=== PATIENT | female | born 1995 | race Caucasian/White ===

== ENCOUNTER → 2017-10-02 13:11 | Outpatient (CLI) | payer OTHER, MEDICAID, SELFPAY ==
--- NOTE | 2017-10-02 | DI.US.S_ITS ---
PROCEDURE: US OB >= 14 WEEKS FETUS INDICATIONS: 20 WEEK ANATOMICAL SURVEY OUTSIDE/PRIOR DATING DATA: Last menstrual period (LMP): 03/25/17. LMP-based estimated date of delivery (YOUNG): 12/21/17. First dating scan (date and location): 06/26/17 performed at [facility]. Estimated date of delivery (YOUNG) from first dating scan: 01/13/18. TECHNIQUE: Real-time scanning was performed of the fetus, with image documentation and biometric measurements. Endovaginal scanning: No COMPARISON: None. FINDINGS: General: A single living intrauterine gestation is present. Presentation: breech. Placenta: Placental position is posterior, without previa. Amniotic fluid index: 13.0 cm, normal range is 5-24 cm. heart rate: 141 beats per minute. Maternal cervical canal: 2.9 cm long. Normal lower limit is 2.5 cm. biometrics: Biparietal diameter: 24 weeks 4 days Head circumference: 24 weeks 3 days Abdominal circumference: 25 weeks Femur length: 25 weeks 3 days Estimated gestational age from initial scan: 25 weeks 2 days Composite gestational age from present scan: 25 weeks Estimated weight and percentile: 464 g; 40 percentile Measurement variability for biometric dating: +/- 7 days from 14 weeks to 15 weeks 6 days gestation, +/- 10 days from 16 weeks to 21 weeks 6 days gestation, +/- 2 weeks from 22 weeks to 27 weeks 6 days gestation, +/- 3 weeks for 28 weeks gestation or later. weight reference: 4500 g or EFW >90/95% is considered macrosomia or large for gestational age. EFW <10% is small for gestational age. EFW 5% or less is considered intra-uterine growth restriction. Anatomic survey: Neuro: Ventricles are non-dilated at less than 10 mm. Cisterna magna is normal at 3-11 mm. Cerebellum is normal in size and morphology. Nuchal skin fold: Normal at less than 6 mm between 14-21 weeks gestational age. Face: Nose and lips, facial profile are normal. Spine: No evidence for spina bifida. Heart: 4-chambered heart is present, with normal ventricular outflow tracts. Diaphragm: Diaphragm is intact. Stomach: Left-sided stomach is present. Kidneys: No hydronephrosis. Normal is less than 5 mm in 2nd trimester, less than 7 mm in 3rd trimester. Cord: 3-vessel cord has orthotopic insertion. Bladder: Normal in size. Extremities: All 4 extremities identified. IMPRESSION: 1. Single living IUP redemonstrated; the interval growth is normal. 2. Normal anatomic survey. Dictated by: Aric Gallegos [facility] Interpreted: Alejandro Garcia MD on 10/02/2017 at 15:24 Approved by: Alejandro Garcia M.D. on 10/02/2017 at 17:57
== END ==
PROVIDERS: Visit Provider Midwife
DX: Z34.92 Encounter for supervision of normal pregnancy, unspecified, second trimester (principal); Z36.89 Encounter for other specified antenatal screening; Z3A.25 25 weeks gestation of pregnancy
CPT/HCPCS: 76811

== ENCOUNTER → 2017-12-13 08:05 | Outpatient (CLI) | payer OTHER, MEDICAID, SELFPAY ==
--- NOTE | 2017-12-13 | DI.US.S_ITS ---
PROCEDURE: US OB LIMITED INDICATIONS: 35 WEEKS NOT MUCH GROWTH OUTSIDE/PRIOR DATING DATA: Last menstrual period (LMP): 03/25/17. LMP-based estimated date of delivery (YOUNG): 12/21/17. First dating scan (date and location): 06/26/17 performed at [facility]. Estimated date of delivery (YOUNG) from first dating scan: 01/13/18. TECHNIQUE: Real-time scanning was performed of the fetus, with image documentation and biometric measurements. Endovaginal scanning: No COMPARISON: None. FINDINGS: General: A single living intrauterine gestation is present. Presentation: Vertex. Placenta: Placental position is posterior, without previa. Amniotic fluid index: 0.7 cm, normal range is 5-24 cm. heart rate: 131 beats per minute. Maternal cervical canal: Not well-seen. cm long. biometrics: Biparietal diameter: 35 weeks 1 day Head circumference: 35 weeks 4 days Abdominal circumference: 35 weeks 1 day Femur length: 35 weeks 2 days Estimated gestational age from initial scan: 35 weeks 4 days Composite gestational age from present scan: 35 weeks 2 days Estimated weight and percentile: 2615 g; 38 percentile Measurement variability for biometric dating: +/- 7 days from 14 weeks to 15 weeks 6 days gestation, +/- 10 days from 16 weeks to 21 weeks 6 days gestation, +/- 2 weeks from 22 weeks to 27 weeks 6 days gestation, +/- 3 weeks for 28 weeks gestation or later. weight reference: 4500 g or EFW >90/95% is considered macrosomia or large for gestational age. EFW <10% is small for gestational age. EFW 5% or less is considered intra-uterine growth restriction. Other: Not applicable. IMPRESSION: 1. Single living IUP redemonstrated and interval growth is normal. Dictated by: Aric Gallegos [facility] Interpreted: Maia Bonds MD on 12/13/2017 at 11:25 Approved by: Maia Bonds M.D. on 12/13/2017 at 13:40
== END ==
PROVIDERS: Visit Provider Midwife
DX: O36.5930 Maternal care for other known or suspected poor fetal growth, third trimester, not applicable or unspecified (principal); Z3A.35 35 weeks gestation of pregnancy
CPT/HCPCS: 76815

== ENCOUNTER 2018-01-09 10:32 | Observation (INO) | payer OTHER, MEDICAID, SELFPAY ==
[2018-01-09] VITALS (10 sets, daily range): BP systolic 116–131; BP diastolic 67–88; PULSE 80–110; RESP 14–26; TEMP 36.6–37; O2SAT 98–100; BMI 25.0
--- NOTE | 2018-01-09 10:58 | ED.PREGNANCY ---
HPI - General Chief complaint: OB/Uterine Contractions Stated complaint: , still retaining placenta Time Seen by Provider: 01/09/18 10:40 Source: patient and other ( Telephone Diaphragm Assembler) Mode of arrival: EMS Limitations: no limitations History of Present Illness HPI Narrative: patient presents to the emergency department after delivering at home at 39 weeks, complaining of placenta not coming out. Delivery was about 45 min ago. Patient states she feels dizzy. Telephone Diaphragm Assembler states there were no problems with the and that delivery was otherwise uneventful. Vaginal bleeding: heavy Patient : Yes (Just delivered baby within the last hour, but placenta isn't coming out) Related Data Allergies Allergy/AdvReac Type Severity Reaction Status Date / Time No Known Drug Allergies Allergy Verified 01/09/18 10:40 Review of Systems Review of Systems All systems reviewed & are unremarkable except as noted in HPI and below Constitutional Denies chills, Denies fever(s), Denies lethargy and Denies weakness Eyes Denies change in vision, Denies eye discharge, Denies irritation and Denies loss of vision ENT Ears, Nose, Mouth, and Throat: Denies change in voice, Denies neck pain and Denies sore throat Cardiovascular Denies chest pain, Denies irregular heart rhythm, Denies lightheadedness, Denies palpitations, Denies dyspnea, Denies dyspnea on exertion and Denies orthopnea Respiratory Denies cough, Denies dyspnea, Denies dyspnea on exertion and Denies wheezing Gastrointestinal Gastrointestinal: Denies abdominal pain, Denies change in bowel habits, Denies diarrhea, Denies nausea and Denies vomiting Genitourinary Denies hematuria, Denies flank pain, Denies urinary incontinence and Denies urinary urgency Comments: Incomplete delivery Musculoskeletal Denies neck pain Integumentary/Breasts Denies pruritus, Denies erythema, Denies rash and Denies wounds Neurologic Denies confusion, Denies loss of vision and Denies weakness Psychiatric Denies anxiety, Denies confusion, Denies depression, Denies homicidal ideation and Denies suicidal ideation Endocrine Denies palpitations Hematologic/Lymphatic Denies easy bruising Allergic/Immunologic Denies wheezing PMFSH - Past Medical History Medical history: Reports no medical history Surgical history: Reports no surgical history STAVE BOLT EQUALIZER history: Reports No STAVE BOLT EQUALIZER History Patient : Yes (Just delivered baby within the last hour, but placenta isn't coming out) Family history: Reports no significant family history Exam Initial Vital Signs Initial Vital Signs: Vital Signs Pulse Rate 110 H 01/09/18 10:31 Respiratory Rate 22 01/09/18 10:31 Blood Pressure 127/67 01/09/18 10:31 Pulse Oximetry 100 01/09/18 10:31 Const General: cooperative and well developed Nutritional Appearance: well nourished Orientation: alert, awake, oriented x3 and not confused Other: Patient is quite pale and appears uncomfortable. [facility] Head: normocephalic and atraumatic Nose: external nose normal and No nasal discharge Face and sinus: face symmetric and No dry mucous membranes Mouth: oral mucosae normal and moist mucous membranes Teeth and gingiva: dentition normal Eyes General: appearance normal, both eyes and all related structures Eyelids: eyelids normal Conjunctivae: conjunctivae normal Sclera: sclerae normal Pupils: PERRL EOM: EOM intact bilaterally Neck Neck: normal visual inspection, trachea midline, No lymphadenopathy, No midline deformity and No JVD Lymphatic: No lymphedema Chest Chest: normal inspection of the chest Resp Effort & Inspection: normal respiratory effort, able to speak in complete sentences, no respiratory distress and no use of accessory muscles Auscultation: clear to auscultation bilaterally, no rales, no rhonchi and no wheezes Cardio Rate: regular rate Rhythm: regular rhythm Heart Sounds: no click, no gallops, no murmurs and no rubs Pulses: normal peripheral pulses GI Inspection: non-distended Palpation: soft, no hepatosplenomegaly, No guarding, No pulsatile mass and tender (Moderate, diffuse.) Other: Patient has moderate vaginal bleeding, with umbilical cord protruding from vaginal introitus. Back/Spine/Pelvis Back: No CVA tenderness Cervical Spine: cervical ROM normal and No pain with cervical ROM Thoracic/Lumbar Spine: thoracic and lumbar spine normal to inspection Skin General: no rashes or lesions noted, No jaundice and No petechiae Neuro General: alert, oriented x3, gait normal and no focal motor deficits Speech: speech normal Extrem General: full ROM, no clubbing, cyanosis or edema, no pedal edema and no calf tenderness Psych Appearance: well kempt Mental Status: mental status grossly normal Attitude: cooperative Thought Content: normal and suicidality Judgment: judgment good Procedures Vaginal Delivery Cord Clamped: Yes Placenta Delivered: partial Patient Tolerated Procedure: Well Complications: excessive bleeding Care Transferred To: Ob Additional Comments: Final stage of delivery, the delivery of the placenta, performed in the emergency department by ED MD. Course Course Narrative: Patient was evaluated by myself in the emergency department, immediately upon arrival with EMS. Patient's door frame assembler machine had accompanied her. I did immediately begin uterine fundal massage, and requested that Pitocin be given to the patient. Additionally, I did have the door frame assembler machine place the baby on the mother's breast to encourage oxytocin production via baby's attempts to suck. We had called Labor and delivery prior to the patient's arrival, and they stated that they could not take the patient, because she had not begun her delivery process here at the hospital. After much discussion and phone calling prior to patient's arrival, including between myself and the on-call sausage linker specialist, it was determined that labor and delivery was full, with multiple patients in active labor, and they did not feel that they had room to take this patient. As such, she was brought to the emergency department to initially be treated under my care. The OB specialist was stuck in a case upstairs, and could not come down right away, so therefore, I did begin attempts to deliver the placenta. With constant traction on the umbilical cord by myself via hemostats, the placenta did gradually deliver, and within 5-10 minutes of placing traction on the cord, as well as vigorous massage of the uterine fundus, the placenta had nearly fully delivered. With this, copious amounts of blood and large clots did also come out of the vagina. The OB specialist did arrive in the emergency department in the midst of placental delivery, and did take over the delivery of the placenta. Patient was found to be significantly anemic with a hemoglobin of 7.8. She was given IV fluid hydration in the form of normal saline boluses, and did remain hemodynamically stable. She was admitted to Labor and delivery, and further care was as per OB recommendation. Orders Ordered: Discontinued Medications Acetaminophen (Tylenol) 650 mg PO Q6HR PRN PRN Reason: Pain, Mild (1-3) Benzocaine (Dermoplast [place]) 1 spray TOP Q1HR PRN PRN Reason: perineal pain Diphtheria/Tetanus/Acell Pertussis (Adacel) 0.5 ml IM .ONCE ONE Stop: 01/09/18 14:19 Docusate Sodium (Colace) 250 mg PO DAILY [facility] Emollient Ointment (Ldy-F-Xepwpt) 1 applic TOP PRN PRN PRN Reason: Tenderness Fentanyl (Sublimaze) 50 mcg IV NOW ONE Stop: 01/09/18 11:30 Last Admin: 01/09/18 11:30 Dose: 50 mcg Sodium Chloride (Normal Saline 0.9%) 1,000 mls @ 1,000 mls/hr IV BOLUS ONE Stop: 01/09/18 12:06 Last Infusion: 01/09/18 11:58 Dose: 0 mls/hr Admin: 01/09/18 11:13 Dose: 1,000 mls/hr Ibuprofen (Advil) 600 mg PO Q6HR PRN PRN Reason: Pain, Mild (1-3) Ketorolac Tromethamine (Toradol) 30 mg IV NOW ONE Stop: 01/09/18 11:30 Last Admin: 01/09/18 11:31 Dose: 30 mg Magnesium Hydroxide (Milk Of Magnesia) 30 ml PO DAILY PRN PRN Reason: Constipation Measles/Mumps/Rubella Vaccine Live (Mmr Ii Vaccine With Diluent) 0.5 ml SUBCUT .ONCE ONE Stop: 01/09/18 14:19 Naloxone HCl (Narcan) 0.2 mg IV Q2MIN PRN PRN Reason: Opiate Reversal Ondansetron HCl (Zofran) 4 mg IV NOW ONE Stop: 01/09/18 11:08 Last Admin: 01/09/18 11:13 Dose: 4 mg Oxycodone/Acetaminophen (Percocet 5/325) 1 tab PO Q4HR [facility] Oxytocin (Pitocin) 10 unit IM NOW ONE Stop: 01/09/18 11:08 Last Admin: 01/09/18 11:12 Dose: 10 unit Rho Immune Globulin (Hyperrho S-D) 1,500 unit IM NOW PRN PRN Reason: Mom Rh neg, Rh pos Vital Signs - 8 hr 01/09/18 10:32 Temperature 98 F Pulse Rate 101 H Respiratory Rate 17 Blood Pressure 126/83 Pulse Oximetry 100 MDM - OB/Uterine Contractions Medical Records Attestation: I reviewed the patient's medical records. Lab Data Attestation: I reviewed the patient's lab results. Result diagrams: 01/09/18 16:42 Lab Results 01/09/18 01/09/18 01/09/18 Range/Units 10:45 10:45 16:42 WBC 22.4 H (4.5-11.0) X10^3/uL RBC 3.37 L (4.0-5.2) X10^6/uL Hgb 10.2 L 7.8 L (12.0-16.0) g/dL Hct 29.5 L 23.4 L (36-46) % MCV 87.5 (80-100) fL MCH 30.1 (26-34) PG MCHC 34.5 (30-36) % RDW 12.2 (11.6-14.8) % Plt Count 292 (150-400) X10^3/uL Neut % (Auto) 88.5 H (50-75) % Lymph % (Auto) 7.0 L (25-40) % [place] % (Auto) 4.2 (3-14) % Eos % (Auto) 0.1 L (2-4) % Baso % (Auto) 0.2 (0-2) % Neut # (Auto) 71633 H (4629-2873) /uL Blood Type B Positive Antibody Screen Negative Critical Care Time Critical Care Time: Yes Total Critical Care Time: 35 Attestation: Stalled vaginal delivery with high probability of deterioration; intrapartum hemorrhage with high likelihood of imminent decline. Critical care time includes interviewing patient, examining patient, ordering diagnostic tests, consulting with specialists, interpreting studies, discussing case with family, and documentation. Discharge Plan Departure Patient Disposition: Admitted as Observation Clinical Impression: hemorrhage, Normal delivery at term Discharge Date/Time: 01/09/18 13:03 Interventions: ED Discharge Assessment Last Done: 01/09/18 12:57 Admit Date/Time: 01/09/18 12:42 Admit Provider: Tracey Chandra
--- NOTE | 2018-01-09 11:01 | ED_ITS ---
HPI - General Chief complaint: OB/Uterine Contractions Stated complaint: , still retaining placenta Time Seen by Provider: 01/09/18 10:40 Source: patient and other ( Risk Engineer) Mode of arrival: EMS Limitations: no limitations History of Present Illness HPI Narrative: patient presents to the emergency department after delivering at home at 39 weeks, complaining of placenta not coming out. Delivery was about 45 min ago. Patient states she feels dizzy. Risk Engineer states there were no problems with the and that delivery was otherwise uneventful. Vaginal bleeding: heavy Patient : Yes (Just delivered baby within the last hour, but placenta isn't coming out) Related Data Allergies Allergy/AdvReac Type Severity Reaction Status Date / Time No Known Drug Allergies Allergy Verified 01/09/18 10:40 Review of Systems Review of Systems All systems reviewed & are unremarkable except as noted in HPI and below Constitutional Denies chills, Denies fever(s), Denies lethargy and Denies weakness Eyes Denies change in vision, Denies eye discharge, Denies irritation and Denies loss of vision ENT Ears, Nose, Mouth, and Throat: Denies change in voice, Denies neck pain and Denies sore throat Cardiovascular Denies chest pain, Denies irregular heart rhythm, Denies lightheadedness, Denies palpitations, Denies dyspnea, Denies dyspnea on exertion and Denies orthopnea Respiratory Denies cough, Denies dyspnea, Denies dyspnea on exertion and Denies wheezing Gastrointestinal Gastrointestinal: Denies abdominal pain, Denies change in bowel habits, Denies diarrhea, Denies nausea and Denies vomiting Genitourinary Denies hematuria, Denies flank pain, Denies urinary incontinence and Denies urinary urgency Comments: Incomplete delivery Musculoskeletal Denies neck pain Integumentary/Breasts Denies pruritus, Denies erythema, Denies rash and Denies wounds Neurologic Denies confusion, Denies loss of vision and Denies weakness Psychiatric Denies anxiety, Denies confusion, Denies depression, Denies homicidal ideation and Denies suicidal ideation Endocrine Denies palpitations Hematologic/Lymphatic Denies easy bruising Allergic/Immunologic Denies wheezing PMFSH - Past Medical History Medical history: Reports no medical history Surgical history: Reports no surgical history STENCIL CUTTER MACHINE history: Reports No STENCIL CUTTER MACHINE History Patient : Yes (Just delivered baby within the last hour, but placenta isn't coming out) Family history: Reports no significant family history Exam Initial Vital Signs Initial Vital Signs: Vital Signs Pulse Rate 110 H 01/09/18 10:31 Respiratory Rate 22 01/09/18 10:31 Blood Pressure 127/67 01/09/18 10:31 Pulse Oximetry 100 01/09/18 10:31 Const General: cooperative and well developed Nutritional Appearance: well nourished Orientation: alert, awake, oriented x3 and not confused Other: Patient is quite pale and appears uncomfortable. [facility] Head: normocephalic and atraumatic Nose: external nose normal and No nasal discharge Face and sinus: face symmetric and No dry mucous membranes Mouth: oral mucosae normal and moist mucous membranes Teeth and gingiva: dentition normal Eyes General: appearance normal, both eyes and all related structures Eyelids: eyelids normal Conjunctivae: conjunctivae normal Sclera: sclerae normal Pupils: PERRL EOM: EOM intact bilaterally Neck Neck: normal visual inspection, trachea midline, No lymphadenopathy, No midline deformity and No JVD Lymphatic: No lymphedema Chest Chest: normal inspection of the chest Resp Effort & Inspection: normal respiratory effort, able to speak in complete sentences, no respiratory distress and no use of accessory muscles Auscultation: clear to auscultation bilaterally, no rales, no rhonchi and no wheezes Cardio Rate: regular rate Rhythm: regular rhythm Heart Sounds: no click, no gallops, no murmurs and no rubs Pulses: normal peripheral pulses GI Inspection: non-distended Palpation: soft, no hepatosplenomegaly, No guarding, No pulsatile mass and tender (Moderate, diffuse.) Other: Patient has moderate vaginal bleeding, with umbilical cord protruding from vaginal introitus. Back/Spine/Pelvis Back: No CVA tenderness Cervical Spine: cervical ROM normal and No pain with cervical ROM Thoracic/Lumbar Spine: thoracic and lumbar spine normal to inspection Skin General: no rashes or lesions noted, No jaundice and No petechiae Neuro General: alert, oriented x3, gait normal and no focal motor deficits Speech: speech normal Extrem General: full ROM, no clubbing, cyanosis or edema, no pedal edema and no calf tenderness Psych Appearance: well kempt Mental Status: mental status grossly normal Attitude: cooperative Thought Content: normal and suicidality Judgment: judgment good Procedures Vaginal Delivery Cord Clamped: Yes Placenta Delivered: partial Patient Tolerated Procedure: Well Complications: excessive bleeding Care Transferred To: Ob Additional Comments: Final stage of delivery, the delivery of the placenta, performed in the emergency department by ED MD. Course Course Narrative: Patient was evaluated by myself in the emergency department, immediately upon arrival with EMS. Patient's management lead had accompanied her. I did immediately begin uterine fundal massage, and requested that Pitocin be given to the patient. Additionally, I did have the management lead place the baby on the mother's breast to encourage oxytocin production via baby's attempts to suck. We had called Labor and delivery prior to the patient's arrival, and they stated that they could not take the patient, because she had not begun her delivery process here at the hospital. After much discussion and phone calling prior to patient's arrival, including between myself and the on-call setter automatic spinning lathe specialist, it was determined that labor and delivery was full, with multiple patients in active labor, and they did not feel that they had room to take this patient. As such, she was brought to the emergency department to initially be treated under my care. The OB specialist was stuck in a case upstairs, and could not come down right away, so therefore, I did begin attempts to deliver the placenta. With constant traction on the umbilical cord by myself via hemostats, the placenta did gradually deliver, and within 5-10 minutes of placing traction on the cord, as well as vigorous massage of the uterine fundus , the placenta had nearly fully delivered. With this, copious amounts of blood and large clots did also come out of the vagina. The OB specialist did arrive in the emergency department in the midst of placental delivery, and did take over the delivery of the placenta. Patient was found to be significantly anemic with a hemoglobin of 7.8. She was given IV fluid hydration in the form of normal saline boluses, and did remain hemodynamically stable. She was admitted to Labor and delivery, and further care was as per OB recommendation. Orders Ordered: Discontinued Medications Acetaminophen (Tylenol) 650 mg PO Q6HR PRN PRN Reason: Pain, Mild (1-3) Benzocaine (Dermoplast Ewing) 1 spray TOP Q1HR PRN PRN Reason: perineal pain Diphtheria/Tetanus/Acell Pertussis (Adacel) 0.5 ml IM .ONCE ONE Stop: 01/09/18 14:19 Docusate Sodium (Colace) 250 mg PO DAILY [facility] Emollient Ointment ([id number]-V-[id number]) 1 applic TOP PRN PRN PRN Reason: Tenderness Fentanyl (Sublimaze) 50 mcg IV NOW ONE Stop: 01/09/18 11:30 Last Admin: 01/09/18 11:30 Dose: 50 mcg Sodium Chloride (Normal Saline 0.9%) 1,000 mls @ 1,000 mls/hr IV BOLUS ONE Stop: 01/09/18 12:06 Last Infusion: 01/09/18 11:58 Dose: 0 mls/hr Admin: 01/09/18 11:13 Dose: 1,000 mls/hr Ibuprofen (Advil) 600 mg PO Q6HR PRN PRN Reason: Pain, Mild (1-3) Ketorolac Tromethamine (Toradol) 30 mg IV NOW ONE Stop: 01/09/18 11:30 Last Admin: 01/09/18 11:31 Dose: 30 mg Magnesium Hydroxide (Milk Of Magnesia) 30 ml PO DAILY PRN PRN Reason: Constipation Measles/Mumps/Rubella Vaccine Live (Mmr Ii Vaccine With Diluent) 0.5 ml SUBCUT .ONCE ONE Stop: 01/09/18 14:19 Naloxone HCl (Narcan) 0.2 mg IV Q2MIN PRN PRN Reason: Opiate Reversal Ondansetron HCl (Zofran) 4 mg IV NOW ONE Stop: 01/09/18 11:08 Last Admin: 01/09/18 11:13 Dose: 4 mg Oxycodone/Acetaminophen (Percocet 5/325) 1 tab PO Q4HR [facility] Oxytocin (Pitocin) 10 unit IM NOW ONE Stop: 01/09/18 11:08 Last Admin: 01/09/18 11:12 Dose: 10 unit Rho Immune Globulin (Hyperrho S-D) 1,500 unit IM NOW PRN PRN Reason: Mom Rh neg, Rh pos Vital Signs - 8 hr 01/09/18 10:32 Temperature 98 F Pulse Rate 101 H Respiratory Rate 17 Blood Pressure 126/83 Pulse Oximetry 100 MDM - OB/Uterine Contractions Medical Records Attestation: I reviewed the patient's medical records. Lab Data Attestation: I reviewed the patient's lab results. Result diagrams: 01/09/18 16:42 Lab Results 01/09/18 01/09/18 01/09/18 Range/Units 10:45 10:45 16:42 WBC 22.4 H (4.5-11.0) X10^3/uL RBC 3.37 L (4.0-5.2) X10^6/uL Hgb 10.2 L 7.8 L (12.0-16.0) g/dL Hct 29.5 L 23.4 L (36-46) % MCV 87.5 (80-100) fL MCH 30.1 (26-34) PG MCHC 34.5 (30-36) % RDW 12.2 (11.6-14.8) % Plt Count 292 (150-400) X10^3/uL Neut % (Auto) 88.5 H (50-75) % Lymph % (Auto) 7.0 L (25-40) % Mccracken % (Auto) 4.2 (3-14) % Eos % (Auto) 0.1 L (2-4) % Baso % (Auto) 0.2 (0-2) % Neut # (Auto) 16860 H (1771-5740) /uL Blood Type B Positive Antibody Screen Negative Critical Care Time Critical Care Time: Yes Total Critical Care Time: 35 Attestation: Stalled vaginal delivery with high probability of deterioration; intrapartum hemorrhage with high likelihood of imminent decline. Critical care time includes interviewing patient, examining patient, ordering diagnostic tests , consulting with specialists, interpreting studies, discussing case with family , and documentation. Discharge Plan Departure Patient Disposition: Admitted as Observation Clinical Impression: hemorrhage, Normal delivery at term Discharge Date/Time: 01/09/18 13:03 Interventions: ED Discharge Assessment Last Done: 01/09/18 12:57 Admit Date/Time: 01/09/18 12:42 Admit Provider: Tracey Chandra
[2018-01-09] MEDS: OXYTOCIN 10 UNIT/ML VIAL IM (11:12)
[2018-01-09] MEDS: ONDANSETRON 4 MG/2 ML INJ IV (11:13)
[2018-01-09] MEDS: SODIUM CHLORIDE 0.9% 1,000 ML 1000 ML IV (11:13)
[2018-01-09 11:24] LABS: Add Manual Diff / Slide Review NO; Basophils Percent Auto 0.2 % (0-2); Eosinophils Percent Auto 0.1 % (2-4); Hematocrit 29.5 % (36-46); Hemoglobin 10.2 g/dL (12.0-16.0); Mean Corpuscular HGB Conc 34.5 % (30-36); Mean Corpuscular Hemoglobin 30.1 PG (26-34); Mean Corpuscular Volume 87.5 fL (80-100); Monocytes Percent Auto 4.2 % (3-14); Neutrophils Absolute Auto 19900 /uL (3000-5900); Neutrophils Percent Auto 88.5 % (50-75); Platelet Count 292 X10^3/uL (150-400); Red Blood Cell Count 3.37 X10^6/uL (4.0-5.2); Red Cell Distribution Width 12.2 % (11.6-14.8); White Blood Cell Count 22.4 X10^3/uL (4.5-11.0)
[2018-01-09] MEDS: fentaNYL 100 MCG/2 ML INJ 50 MCG IV (11:30)
[2018-01-09] MEDS: KETOROLAC 60 MG/2 ML VIAL 30 MG IV (11:31)
--- NOTE | 2018-01-09 11:33 | PC.NURSE ---
Running note: Pt arrived via [facility] @ 1030 accompanied by nurse billing specialist. Pt delievered 38 wk male at home @ 835 but could not deliver placenta and had signifcant blood loss (Crane Manager estimates 1000 cc total prior to arrival). Pt arrived pale, diaphoretic, tachycardic. 2nd iv established in right AC. 2nd liter of fluid hung at 1050. EMS hung 1st liter of NS in field which continued running. Dr. Gamboa present then Dr. Chandra. Pt continued to have significant blood loss. Placenta was delivered. Lacerations to labia x [address] Chandra. Pt started vomiting @ 1045, given zofran 4 mg iv. 1055: Pitocin 10 units added to iv fluid and continues to run wide open. 1105 Fentanyl 50 mcg for pain iv 1115: placenta has been delivered. Pt continues to have small amount of blood from vagina. Denies pain / discomfort.
--- NOTE | 2018-01-09 17:06 | PC.ADMIT ---
1[address] [facility] Admission Note: The patient,Kayden Terry,22 y/o, was given written information regarding hospital policies, unit procedures and contact persons. Patient's smoking status: Former smoker. Vital Signs - 8 hr 01/09/18 10:31 01/09/18 10:32 01/09/18 11:00 Temperature 98 F Pulse Rate 110 H 101 H 110 H Respiratory Rate 22 17 24 Blood Pressure 126/83 Blood Pressure [Right Arm] 127/67 131/88 Pulse Oximetry 100 100 100 01/09/18 11:30 01/09/18 12:02 01/09/18 12:45 Temperature Pulse Rate 81 99 H 80 Respiratory Rate 26 H 14 18 Blood Pressure Blood Pressure [Right Arm] 126/77 128/78 119/76 Pulse Oximetry 98 01/09/18 12:56 01/09/18 13:19 01/09/18 16:29 Temperature 97.8 F 98.6 F Pulse Rate 87 90 89 Respiratory Rate 14 16 16 Blood Pressure 118/79 116/72 Blood Pressure [Right Arm] 119/76 Pulse Oximetry 98 98
--- NOTE | 2018-01-09 17:14 | SUR.HOLD ---
patient up to bathroom,voided 400 bloody urine,ambulated to bathroom
[2018-01-09 17:28] LABS: Hematocrit 23.4 % (36-46); Hemoglobin 7.8 g/dL (12.0-16.0)
== END 2018-01-09 18:11 | disposition home or self-care (01) ==
LOC: ED 11:41 → LABOR 13:10
PROVIDERS: Admitting Provider Obstetrics & Gynecology; Emergency Provider Emergency Medicine; Visit Provider Obstetrics & Gynecology
DX: O72.0 Third-stage hemorrhage (principal)
CPT/HCPCS: 85014; 85018; 85025; 86850; 86900; 86901; 96361; 96374; 96375; 99283; 99284; G0378; J1885; J2405; J2590; J3010

== ENCOUNTER 2018-06-09 03:58 | Emergency (ER) | payer OTHER, MEDICAID, SELFPAY ==
[2018-01-09 13:19] VITALS: BMI 25.0
[2018-06-09 04:08] VITALS: BP 131/95; PULSE 89; RESP 18; TEMP 36.6; O2SAT 99; BMI 20.5
--- NOTE | 2018-06-09 04:09 | ED_ITS ---
HPI - Skin/Abscess/Foreign Bdy General Chief complaint: Skin/Abscess/Foreign Body Stated complaint: rash all over Time Seen by Provider: 06/09/18 04:00 Source: patient Mode of arrival: ambulatory Limitations: no limitations History of Present Illness HPI narrative: 23-year-old female daily smoker with lifelong history of eczema presents with an exacerbation lasting upwards of 5 months. She states that she has had episodes off and for entire life but since the delivery of her child 5 months ago she has had widespread outbreak that is intensely pruritic and on occasion results in purulent drainage from her scalp or earlobes. she denies fever or chills. She denies any difficulty swallowing, breathing or abdominal pain. She was most recently given prednisone and some type of anti itching medicine that made her feel high, presumably Vistaril complaint: rash Onset (ago): minute(s) Tetanus up to date: yes Location: generalized Severity: moderate Quality: burning Pain Consistency: constant Exacerbating factors: none Context: none Treatments prior to arrival: OTC topical medication Related Data Home Medications Medication Instructions Recorded Confirmed cholecalciferol (vitamin D3) 2,000 2,000 unit PO DAILY 04/17/18 04/17/18 unit capsule 1 tab PO DAILY 04/17/18 04/17/18 vitamin,calcium,gqzdkfdh-[id number]-zfwry acid tablet Previous Rx's Medication Instructions Recorded hydrocortisone 1 % topical cream 1 applic TOP BID-QID PRN #30 gram 04/17/18 Allergies Allergy/AdvReac Type Severity Reaction Status Date / Time No Known Drug Allergies Allergy Verified 04/17/18 14:06 Review of Systems Constitutional Denies chills, Denies fever(s), Denies lethargy and Denies weakness Eyes Denies change in vision, Denies eye discharge, Denies irritation and Denies loss of vision ENT Ears, Nose, Mouth, and Throat: Denies change in voice, Denies neck pain and Denies sore throat Cardiovascular Denies chest pain, Denies irregular heart rhythm, Denies lightheadedness, Denies palpitations, Denies dyspnea, Denies dyspnea on exertion and Denies orthopnea Respiratory Denies cough, Denies dyspnea, Denies dyspnea on exertion and Denies wheezing Gastrointestinal Gastrointestinal: Denies abdominal pain, Denies change in bowel habits, Denies diarrhea, Denies nausea and Denies vomiting Genitourinary Denies hematuria, Denies flank pain, Denies urinary incontinence and Denies urinary urgency Musculoskeletal Denies neck pain Integumentary/Breasts Reports pruritus, Denies erythema, Denies rash, Reports skin swelling and Denies wounds Neurologic Denies confusion, Denies loss of vision and Denies weakness Psychiatric Denies anxiety, Denies confusion, Denies depression, Denies homicidal ideation and Denies suicidal ideation Endocrine Denies palpitations Hematologic/Lymphatic Denies easy bruising Allergic/Immunologic Denies wheezing PFSH Social History household members: spouse Smoking Status: Current every day smoker Social History household members: spouse Smoking Status: Current every day smoker Exam Narrative Exam Narrative: GEN: AOx3 and in mild distress EYES: Pupils are equal, round, and reactive to light and accommodation. Extraoccular muscles are intact bilaterally. There is no subconjunctival hemorrhage or exudate. CHEST: Lungs are clear to auscultation bilaterally and free of wheezes, rales, or rhonchi. Heart rate is regular rhythm, there are no murmurs, clicks, rubs, or gallops. There is no chest wall tenderness. ABD: Abdomen is soft and nontender. There is no guarding or rebound. Bowel sounds are normal in all 4 quadrants. There is no mass or organomegaly. EXT: Full painless ROM of all extremities with no loss of sensation or strength. SKIN: widespread pruritic, erythematous and scaling rash, on flexor and extensor surfaces. There is crusting, yellowish fluid in gauge of L ear lobe and similar findings on central scalp Initial Vital Signs Initial Vital Signs: Vital Signs Temperature 97.9 F 06/09/18 04:08 Pulse Rate 89 06/09/18 04:08 Respiratory Rate 18 06/09/18 04:08 Blood Pressure 131/95 H 06/09/18 04:08 Pulse Oximetry 99 06/09/18 04:08 Course Orders Ordered: Discontinued Medications Prednisone (Deltasone) 40 mg PO NOW ONE Stop: 06/09/18 04:22 Last Admin: 06/09/18 04:25 Dose: 40 mg Vital Signs - 8 hr 06/09/18 04:08 Temperature 97.9 F Pulse Rate 89 Respiratory Rate 18 Blood Pressure 131/95 H Pulse Oximetry 99 Discharge Plan Departure Patient Disposition: Home Clinical Impression: Eczema, Folliculitis Discharge Date/Time: 06/09/18 04:31 Instructions: DI for Folliculitis Activity Restrictions/Additional Instructions: *You have been diagnosed with [ eczema exacerbation with folliculitis] *What to do: *Take medications as directed. your prescription has been electronically transmitted to the [facility] in [place] your request *Follow up with your primary care provider in 2-3 days, call for an appointment. Let them know you were seen in the Emergency Department and that we ask that you be seen in follow up. is likely that he will need a referral to Dermatology to create a long-term plan *Return to ER if you should have any new, worsening or concerning symptoms, such as [ ] Prescriptions: No Action prenat.vits,sarah,vah-gwkz-ppwxl tablet 1 tab PO DAILY RF: 0 cholecalciferol (vitamin D3) 2,000 unit capsule 2,000 unit PO DAILY RF: 0 hydrocortisone 1 % cream 1 applic TOP BID-QID PRN (Reason: rash) Qty: 30 RF: 0 Referrals: Alejandrina Mccoy MD [Physician] -
[2018-06-09] MEDS: predniSONE 20 MG TABLET 40 MG PO (04:25)
== END 2018-06-09 04:31 | disposition home or self-care (01) ==
PROVIDERS: Emergency Provider Emergency Medicine
DX: L30.9 Dermatitis, unspecified (principal); L73.9 Follicular disorder, unspecified
CPT/HCPCS: 99282; 99283

== ENCOUNTER 2019-09-19 12:22 | Emergency (ER) | payer OTHER, MEDICAID, SELFPAY ==
[2018-01-09 13:19] VITALS: BMI 25.0
[2019-09-19 12:39] VITALS: BP 124/69; PULSE 87; RESP 16; TEMP 36.4; O2SAT 98; BMI 20.7
[2019-09-19] MEDS: BACITRACIN OINT 0.9 GM PCKT 1 APPLIC TOP (14:14)
--- NOTE | 2019-09-19 15:06 | ED_ITS ---
HPI - Wound/Laceration <SCAR HanBC - Last Filed: 09/19/19 15:11> General Chief Complaint: Wound/Laceration Stated Complaint: LEFT HAND INDEX LACERATION Time Seen by Provider: 09/19/19 12:37 Source: patient Mode of arrival: Family Vehicle Limitations: no limitations History of Present Illness HPI narrative: The patient is a 24-year-old female current smoker who presents with a chief complaint of left index finger laceration. She states that happened 2 days ago when she accidentally that she has had increasing drainage, crustiness and redness from the laceration. She does have history of MRSA so she is concerned about further MRSA infection as she has spent a month in the hospital for MRSA before. She states she has full range of motion of her index finger. She is able to flex and extended. She would like to have the wound closed today. Tetanus is up-to-date within the past few years. She denies any fevers nausea vomiting or diarrhea. Related Data Home Medications Medication Instructions Recorded Confirmed cholecalciferol (vitamin D3) 50 2,000 unit PO DAILY 04/17/18 04/17/18 mcg (2,000 unit) capsule prenat.vits,sarah,rjb-ubac-aljvd 1 tab PO DAILY 04/17/18 04/17/18 Previous Rx's Medication Instructions Recorded hydrocortisone 1 % topical cream 1 applic TOP BID-QID PRN #30 gram 04/17/18 doxycycline hyclate 100 mg PO BID #20 cap 09/19/19 Allergies Allergy/AdvReac Type Severity Reaction Status Date / Time No Known Drug Allergies Allergy Verified 09/19/19 12:44 Review of Systems <TANYA Han - Last Filed: 09/19/19 15:11> Review of Systems Narrative: GENERAL: Denies chills, fatigue, malaise, fever, sweats. HEENT: Denies sinus pain, ear pain, sore throat, difficulty swallowing, dizziness. RESPIRATORY: Denies dyspnea, cough, wheezing, hemoptysis, sputum. CARDIOVASCULAR: Denies chest pain, palpitations, orthopnea, edema, GASTROINTESTINAL: Denies nausea, vomiting, abdominal pain, diarrhea, constipation, melena. : Denies dysuria, frequency, incontinence, hematuria, urinary retention. MUSCULOSKELETAL: See HPI SKIN: See HPI NEUROLOGIC: Denies weakness, headache, numbness, change in speech, confusion, seizures, incoordination. PSYCHIATRIC: No concerning psychosocial issues. 12 point review of systems is negative except for those stated above Patient History <DAVID HanP-PATRICE - Last Filed: 09/19/19 15:11> Social History household members: spouse Smoking Status: Current every day smoker Smoking Status: Current every day smoker tobacco type: cigarettes alcohol intake frequency: 0-2 drinks per day Substance Use Type: marijuana Exam <Radha FlanaganSCARBC - Last Filed: 09/19/19 15:11> Narrative Exam Narrative: GENERAL: This is a well-nourished, well-developed patient, in no acute distress HEAD: Atraumatic. Normocephalic. No temporal or scalp tenderness. EYES: Pupils equal round and reactive. Extraocular motions intact. No scleral icterus. No injection or drainage. ENT: Nose without bleeding, purulent drainage or septal hematoma. Throat without erythema, tonsillar hypertrophy or exudate. Uvula midline. Airway patent. NECK: Trachea midline. No JVD or lymphadenopathy. Supple, nontender, no meningeal signs. CARDIOVASCULAR: Regular rate and rhythm RESPIRATORY: Clear to auscultation. Breath sounds equal bilaterally. No wheezes, rales, or rhonchi. No cough. No increased respiratory effort. No accessory muscle use. GASTROINTESTINAL: Abdomen soft, non-tender, nondistended. No hepato- splenomegaly, or palpable masses. No guarding. EXTREMITIES: Able to flex and extend right finger 2nd digit against resistance. Cap refill less than 2 seconds. Positive right radial pulse. BACK: Nontender without deformity or crepitance. No flank tenderness. NEURO: AOx3. SKIN: 1 cm laceration on distal phalanx of palmar aspect of right 2nd digit appears to be healing, with slight yellow drainage noted. Wound culture obtained. Slight surrounding erythema. Initial Vital Signs Initial Vital Signs: Vital Signs Temperature 97.6 F 09/19/19 12:39 Pulse Rate 87 09/19/19 12:39 Respiratory Rate 16 09/19/19 12:39 Blood Pressure 124/69 09/19/19 12:39 Pulse Oximetry 98 09/19/19 12:39 <Michael Sesay MD - Last Filed: 09/20/19 07:17> Initial Vital Signs Initial Vital Signs: Vital Signs Temperature 97.6 F 09/19/19 12:39 Pulse Rate 87 09/19/19 12:39 Respiratory Rate 16 09/19/19 12:39 Blood Pressure 124/69 09/19/19 12:39 Pulse Oximetry 98 09/19/19 12:39 Course <TANYA Han - Last Filed: 09/19/19 15:11> Orders Ordered: Discontinued Medications Bacitracin (Bacitracin) 1 applic TOP NOW ONE Stop: 09/19/19 14:02 Last Admin: 09/19/19 14:14 Dose: 1 applic Documented by: KPEARSO Vital Signs Vital signs: Vital Signs - 8 hr 09/19/19 12:39 Temperature 97.6 F Pulse Rate 87 Respiratory Rate 16 Blood Pressure 124/69 Pulse Oximetry 98 <Michael Sesay MD - Last Filed: 09/20/19 07:17> Orders Ordered: Discontinued Medications Bacitracin (Bacitracin) 1 applic TOP NOW ONE Stop: 09/19/19 14:02 Last Admin: 09/19/19 14:14 Dose: 1 applic Documented by: KPEARSO Vital Signs Vital signs: Vital Signs - 8 hr 09/19/19 12:39 Temperature 97.6 F Pulse Rate 87 Respiratory Rate 16 Blood Pressure 124/69 Pulse Oximetry 98 MDM - Wound/Laceration <TANYA Han - Last Filed: 09/19/19 15:11> MDM Narrative Medical decision making narrative: The patient is a 24-year-old female who presents with a chief complaint of a laceration. She does have a MRSA history, has had some drainage purulence and erythema around the wound. Wound culture was obtained. Did start patient on doxycycline to cover for MRSA. Discussed at length monitoring for signs and symptoms of infection that is worsening, suggested follow-up with primary care provider. Discussed that I cannot close a 2-day-old wound. Patient has been neurovascularly intact and hemodynamically stable without signs or symptoms of systemic infection throughout her stay in the emergency department. Patient has no questions or concerns upon discharge and states understanding of return precautions as well as follow-up care Discharge Plan Departure Patient Disposition: Home Clinical Impression: Infected wound Discharge Date/Time: 09/19/19 14:17 Instructions: DI for Wound Infection Activity Restrictions/Additional Instructions: Thank you for trusting us with your care today As I discussed, your wound is too old to close. Given your history of MRSA combined with the drainage noted from your wound, I sent in a prescription of an antibiotic to [facility] Please follow-up with primary care provider in the next few days. I have given you contact information to the [facility] health marine habitat resource specialist. The wound culture will take 2-3 days to come back Prescriptions: New doxycycline hyclate 100 mg capsule 100 mg PO BID Qty: 20 RF: 0 No Action prenat.vits,sarah,xwd-zloi-izzhp tablet 1 tab PO DAILY RF: 0 cholecalciferol (vitamin D3) 2,000 unit capsule 2,000 unit PO DAILY RF: 0 hydrocortisone 1 % cream 1 applic TOP BID-QID PRN (Reason: rash) Qty: 30 RF: 0 Referrals: [facility] [Outside]
== END 2019-09-19 14:17 | disposition home or self-care (01) ==
PROVIDERS: Emergency Provider Nurse Practitioner Family
DX: L08.9 Local infection of the skin and subcutaneous tissue, unspecified (principal); S61.211A Laceration without foreign body of left index finger without damage to nail, initial encounter
CPT/HCPCS: 87070; 87075; 87077; 87147; 87186; 87205; 99283

== ENCOUNTER 2020-03-17 14:12 | Emergency (ER) | payer SELFPAY ==
[2018-01-09 13:19] VITALS: BMI 25.0
[2020-03-17 14:19] VITALS: BP 125/81; PULSE 76; RESP 18; TEMP 36.8; O2SAT 99
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
[2020-03-17] MEDS: ACETAMINOPHEN 325 MG TABLET 975 MG PO (15:45)
[2020-03-17] MEDS: KETOROLAC 10 MG TABLET PO (15:45)
[2020-03-17] MEDS: ONDANSETRON 4 MG ODT SL (15:45)
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
[2020-03-17 16:51] VITALS: BP 118/74; PULSE 75; RESP 16; O2SAT 99
== END 2020-03-17 16:52 | disposition home or self-care (01) ==
PROVIDERS: Emergency Provider Nurse Practitioner Family
DX: S06.0X0A Concussion without loss of consciousness, initial encounter (principal); V89.2XXA Person injured in unspecified motor-vehicle accident, traffic, initial encounter
CPT/HCPCS: 81003; 81025; 99281; 99283